=== PATIENT | female | born 1980 | race Two or more races ===

== ENCOUNTER 2020-01-15 05:39 | Emergency (ER) | payer SELFPAY ==
[2020-01-15] MEDS ORDERED: Ketorolac 15 MG/ML SDV IVPUSH ONE (05:57)
[2020-01-15] MEDS ORDERED: Sodium Chloride 0.9% 10 ML Syringe FLUSH PRN (05:57)
[2020-01-15] MEDS ORDERED: Sodium Chloride 0.9% 2.5 ML Syringe FLUSH PRN (05:57)
--- NOTE | 2020-01-15 06:10 | EDM.PDOC ---
<Feng Pérez - Last Filed: 01/15/20 06:54> ED HPI GENERAL MEDICAL PROBLEM - General Chief Complaint: General Stated Complaint: RIGHT UPPER BACK PAIN Time Seen by Provider: 01/15/20 05:53 - History of Present Illness INITIAL COMMENTS - FREE TEXT/NARRATIVE: HISTORY AND PHYSICAL: History of present illness: This is a healthy 39-year-old female who presents to the ER today secondary to pain to her right flank rating to her right upper quadrant x5 days. Patient reports that the pain is constant in nature and not colicky. Reports no change with meals. Patient reports slight change with palpation to the area and slight increase with laying flat in bed. Patient denies any recent fevers, shakes, chills, nausea, vomiting, diarrhea, dysuria, frequency, urgency, hematuria, URI symptoms, cough. Patient denies any melena or bright red blood per rectum. Patient reports no change in pain with deep inspiration. Patient denies any hemoptysis. Patient denies any calf tenderness or edema. Patient reports that she currently works at home and does no heavy lifting or increased exertion prior to the initiation of the pain. Patient reports that she has been taking Tylenol at home with minimal relief. Patient denies any history of hypertension, diabetes, liver, lung, kidney problems. Patient denies any prior PE/DVT. Patient denies any kidney stones in the past. Patient denies any prior diagnoses of cholecystitis/cholelithiasis in the past. Patient denies any prior abdominal or chest surgeries. Patient denies any tobacco alcohol or drugs. Patient has no known drug allergies. Review of systems: As per history of present illness and below otherwise all systems reviewed and negative. Past medical history: As per history of present illness and as reviewed below otherwise noncontribu tory. Surgical history: As per history of present illness and as reviewed below otherwise noncontributory. Social history: No reported history of drug or alcohol abuse. Family history: As per history of present illness and as reviewed below otherwise noncontributory. Physical exam: Constitutional: Patient is oriented to person, place, and time. Appears well- developed and well-nourished. No distress. HEENT: Moist mucous membranes Head: Normocephalic and atraumatic Eyes: Right eye exhibits no discharge. Left eye exhibits no discharge. No scleral icterus Neck: Normal range of motion. No tracheal deviation present. Cardiovascular: Normal rate and regular rhythm. No murmurs. Pulmonary: Effort normal, no respiratory distress. No wheezing rales or rhonchi. Abd: Soft, nondistended, no rebound/guarding, no tenderness at Mcberney's point, no Figueredo's sign. Pt does not present with an exam that would be consistent with an acute surgical abdomen at this time. Patient with tenderness to palpation to her right flank and right upper quadrant. Pain appears to be greatest when palpating the lower ribs and cartilage. Musculoskeletal: Normal range of motion Neurologic: Alert and oriented to person, place and time. Skin: Orrick, warm and dry. Psychiatric: Normal mood and affect. Behavior is normal. Judgment and thought content normal. Nursing note and vital signs have been reviewed Diagnostics: CBC, CMP, lipase, d-dimer, urinalysis, urine test Chest x-ray Therapeutics: Toradol 15 mg IV. Assessment and plan: This is a 39-year-old female who presents ER today with 5 days worth of right flank and right upper quadrant abdominal pain. Possible, pain appears to be atypical for PE/diverticulitis/hepatitis/renal colic/urinary tract infection/pneumonia. In the ER, patient will get a CBC, CMP, lipase, d- dimer, urinalysis, chest x-ray. Patient was given Toradol 15 mg IV and will be reassessed. Patient will have an ultrasound of her right upper quadrant to assess biliary colic as a cause. Chest Xray: Normal cardiac silhouette No infiltrates or effusions identified. No PTX No evidence of acute bony fracture. As interpreted by ER MDDevika Pérez Patient's LFTs are significant for elevated ALT/AST/alk phos. Patient's total bilirubin is within normal limits. Ultrasound of the right upper quadrant has been ordered. D-dimer is within normal limits. Patient's presentation and history is extremely low risk for PE. Urinalysis is unremarkable without any evidence of WBCs/RBCs. Patient has been given Toradol 15 mg IV in the ED and feels slightly improved. 7 AM: Care signed out to Dr. Tyler. Definitive disposition and diagnosis as appropriate pending reevaluation and review of above. back Pain Score (Numeric/FACES): 8 - Related Data Allergies Allergy/AdvReac Type Severity Reaction Status Date / Time No Known Allergies Allergy Verified 01/15/20 05:53 Home Meds: Home Meds Acetaminophen [Acetaminophen Extra Strength] 500 - 1,000 mg PO Q6H PRN #30 tablet 01/15/20 [Rx] metFORMIN [Glucophage] 500 mg PO BIDMEALS 30 Days #60 tab 01/15/20 [Rx] ED ROS GENERAL - Review of Systems Review Of Systems: Comprehensive ROS is negative, except as noted in HPI. ED EXAM, GENERAL - Physical Exam Exam: See Below Departure - Departure Disposition: Home, Self-Care 01 Clinical Impression: Right flank pain, Right upper quadrant abdominal pain, Hepatic steatosis, Elevated liver enzymes Diabetes mellitus Qualifiers: Diabetes mellitus type: other specified (including ALEJANDRA) Diabetes mellitus vermin exterminator insulin use: without alf use Diabetes mellitus complication status: without complication Qualified Code(s): E13.9 - Other specified diabetes mellitus without complications - Discharge Information Prescriptions: Acetaminophen [Acetaminophen Extra Strength] 500 - 1,000 mg PO Q6H PRN #30 tablet PRN Reason: Pain (Mild 1-3) metFORMIN [Glucophage] 500 mg PO BIDMEALS 30 Days #60 tab Instructions: Type 2 Diabetes Mellitus, Diagnosis, Adult, Living With Diabetes, Abdominal Pain, Adult, [id number], Type 2 Diabetes Mellitus, Self Care, Adult, Flank Pain, Adult, Preventing Diabetes Mellitus Complications, Diabetes Mellitus and Exercise, Nonalcoholic Fatty Liver Disease Diet, Adult Referrals: [facility] [Provider Group] - 1 Week (For follow-up of abdominal pain and diabetes mellitus.) Forms: ED Department Discharge Additional Instructions: You were seen in the emergency department for abdominal and flank pain. Your urine testing was normal. Your blood work showed that your liver enzymes are mildly elevated, which is nonspecific. This could be caused by fat in the liver, recent alcohol use, stress, viral infection, or numerous other causes. The ultrasound of your gallbladder was normal, there is noted to be a little bit of fat in the liver which is not uncommon. There is no evidence of an infection right now. When you see your primary doctor for a follow-up appointment, they can recheck your liver tests. Your blood glucose was elevated and your blood work was diagnostic for diabetes mellitus. I am going to start you on metformin, and initial medication that we prescribed most all diabetic patients to start. It is very important that you follow-up with a primary medicine clinic in the next 1 to 2 weeks. You will need to receive diabetes specific education and additional testing such as cholesterol testing, blood pressure monitoring, and have a family physician closely follow you to ensure that everything is being done to help optimize your blood sugar. Please return the emergency department immediately if your symptoms worsen or if you feel worse. Thank you for choosing the [facility] emergency department in [place] for your medical needs today. It was a pleasure caring for you. The following information is given to patients seen in the emergency department who are being discharged. This information is to outline your options for follow-up care. We provide all patients seen in our emergency department with a follow-up referral. The need for follow-up, as well as the timing and circumstances, are variable depending upon the specifics of your emergency department visit. If you don't have a primary care physician on staff, we will provide you with a referral. We always advise you to contact your personal physician following an emergency department visit to inform them of the circumstance of the visit and for follow-up with them and/or the need for any referrals to a consulting specialist. The emergency department will also refer you to a specialist when appropriate. This referral assures that you have the opportunity for follow-up care with a specialist. All of these measure are taken in an effort to provide you with optimal care, which includes your follow-up. Under all circumstances we always encourage you to contact your private physician who remains a resource for coordinating your care. When calling for follow-up care, please make the office aware that this follow-up is from your recent emergency room visit. If for any reason you are refused follow-up, please contact the [facility] Emergency Department at and asked to speak to the emergency department charge nurse. If you do not have a primary care physician that is caring for you, you can contact these clinics below to set up an appointment to establish care: [facility] - Primary [facility] [address] [place] [id number] [facility] [address] [place] [address] Sepsis Event Note (ED) - Evaluation Sepsis Screening Result: No Definite Risk <Quentin Tyler - Last Filed: 01/15/20 09:10> Course - Vital Signs Text/Narrative:: I assumed care of this patient at [address] Pérez. In brief, this is a 39-year-old female presenting with 5 days of right flank pain radiating to the right upper quadrant. I agree with Dr. Pérez's history and physical examination, mine is consistent with his. Vital signs stable. CBC shows no leukocytosis. D-dimer is negative. Metabolic panel shows hyperglycemia >200 mg/dL, elevated AST, ALT, and alkaline phosphatase. Lipase is within normal limits. Urinalysis shows no blood or evidence of infection. We are waiting for an ultrasound study of the right upper quadrant. She had been given IV ketorolac prior to my arrival. 0730: I reevaluated the patient and she is still having some pain. I ordered oxycodone, acetaminophen, and a lidocaine patch. I also added on a hemoglobin A1c as her blood sugar is borderline for diabetes mellitus. We are waiting for the outer diameter technician to arrive. 0814: Patient is resting comfortably. We are awaiting the ultrasound read in the A1c. We did discuss obtaining a CT scan of the abdomen/pelvis with contrast. We did discuss the results of her current work-up and vital signs. At this time, the patient does not want to pursue with a CT scan and is comfortable with the ultrasound, blood work, and urinalysis testing that we have already done. Right upper quadrant ultrasound shows fatty infiltration of the liver but no other acute findings. Biliary ductal measurements are normal. Patient resting comfortably. Patient hemodynamically stable, afebrile, well-appearing, looks nontoxic. Plan: Patient is stable to discharge home with outpatient primary care clinic follow-up. Etiology of abdominal pain is not entirely clear but no evidence of an emergent or malignant process at this time. We did discuss CT imaging of the abdomen/pelvis, which the patient wants to defer. She has newly diagnosed diabetes and we will refer her to the family medicine clinic for follow-up and start her on some metformin. I also counseled her that she needs to have her liver function tests rechecked. Prescriptions sent for metformin, acetaminophen. Also recommended [id number] lidocaine patches. Strict emergency department return precautions were provided, patient indicated understanding. All questions were answered prior to departure. Discharged in good condition. Last Recorded V/S: Last Vital Signs Temp 35.9 C L 01/15/20 05:45 Pulse 73 01/15/20 08:03 Resp 18 01/15/20 08:03 BP 132/85 01/15/20 08:03 Pulse Ox 97 01/15/20 08:03 - Orders/Labs/Meds Orders: Active Orders 24 hr Category Date Time Status Sodium Chloride 0.9% [Saline Flush] Med 01/15/20 05:57 Active 10 ml FLUSH ASDIRECTED PRN Sodium Chloride 0.9% [Saline Flush] Med 01/15/20 05:57 Active 2.5 ml FLUSH ASDIRECTED PRN Saline Lock Insert [OM.PC] Stat Oth 01/15/20 05:57 Ordered Medication Orders Sodium Chloride (Saline Flush) 10 ml FLUSH ASDIRECTED PRN PRN Reason: Keep Vein Open Last Admin: 01/15/20 06:19 Dose: 10 ml Documented by: FRIDA Sodium Chloride (Saline Flush) 2.5 ml FLUSH ASDIRECTED PRN PRN Reason: Keep Vein Open Last Admin: 01/15/20 06:19 Dose: 2.5 ml Documented by: FRIDA Labs: Laboratory Tests 01/15/20 01/15/20 01/15/20 Range/Units 06:03 06:03 06:12 WBC 7.31 (4.0-11.0) K/uL RBC 4.77 (4.30-5.90) M/uL Hgb 14.7 (12.0-16.0) g/dL Hct 42.9 (36.0-46.0) % MCV 89.9 (80.0-98.0) fL MCH 30.8 (27.0-32.0) pg MCHC 34.3 (31.0-37.0) g/dL RDW Std Deviation 40.8 (28.0-62.0) fl RDW Coeff of Hugo 13 (11.0-15.0) % Plt Count 261 (150-400) K/uL MPV 10.00 (7.40-12.00) fL Neut % (Auto) 43.2 L (48.0-80.0) % Lymph % (Auto) 44.9 H (16.0-40.0) % [place] % (Auto) 9.6 (0.0-15.0) % Eos % (Auto) 1.9 (0.0-7.0) % Baso % (Auto) 0.4 (0.0-1.5) % Neut # (Auto) 3.2 (1.4-5.7) K/uL Lymph # (Auto) 3.3 H (0.6-2.4) K/uL Yolo # (Auto) 0.7 (0.0-0.8) K/uL Eos # (Auto) 0.1 (0.0-0.7) K/uL Baso # (Auto) 0.0 (0.0-0.1) K/uL D-Dimer, Quantitative (0.0-0.50) mg/L FEU Sodium (136-145) mmol/L Potassium (3.5-5.1) mmol/L Chloride (98-107) mmol/L Carbon Dioxide (21.0-32.0) mmol/L BUN (7.0-18.0) mg/dL Creatinine (0.6-1.0) mg/dL Est Cr Clr Drug Dosing mL/min Estimated GFR (MDRD) ml/min Glucose (74-106) mg/dL Hemoglobin A1c (4.5-6.2) % Calcium (8.5-10.1) mg/dL Total Bilirubin (0.2-1.0) mg/dL AST (15-37) IU/L ALT (14-63) IU/L Alkaline Phosphatase (46-116) U/L Total Protein (6.4-8.2) g/dL Albumin (3.4-5.0) g/dL Globulin (2.6-4.0) g/dL Albumin/Globulin Ratio (0.9-1.6) Lipase (73-393) U/L Urine Color YELLOW Urine Appearance CLEAR Urine pH 5.0 (5.0-8.0) Ur Specific [place] 1.010 (1.001-1.035) Urine Protein NEGATIVE (NEGATIVE) mg/dL Urine Glucose (UA) NEGATIVE (NEGATIVE) mg/dL Urine Ketones NEGATIVE (NEGATIVE) mg/dL Urine Occult Blood NEGATIVE (NEGATIVE) Urine Nitrite NEGATIVE (NEGATIVE) Urine Bilirubin NEGATIVE (NEGATIVE) Urine Urobilinogen 0.2 (<2.0) EU/dL Ur Leukocyte Esterase NEGATIVE (NEGATIVE) Urine HCG, Qual NEGATIVE (NEGATIVE) 01/15/20 01/15/20 01/15/20 Range/Units 06:12 06:12 06:12 WBC (4.0-11.0) K/uL RBC (4.30-5.90) M/uL Hgb (12.0-16.0) g/dL Hct (36.0-46.0) % MCV (80.0-98.0) fL MCH (27.0-32.0) pg MCHC (31.0-37.0) g/dL RDW Std Deviation (28.0-62.0) fl RDW Coeff of Hugo (11.0-15.0) % Plt Count (150-400) K/uL MPV (7.40-12.00) fL Neut % (Auto) (48.0-80.0) % Lymph % (Auto) (16.0-40.0) % Y[place] % (Auto) (0.0-15.0) % Eos % (Auto) (0.0-7.0) % Baso % (Auto) (0.0-1.5) % Neut # (Auto) (1.4-5.7) K/uL Lymph # (Auto) (0.6-2.4) K/uL Yolo # (Auto) (0.0-0.8) K/uL Eos # (Auto) (0.0-0.7) K/uL Baso # (Auto) (0.0-0.1) K/uL D-Dimer, Quantitative < 0.19 (0.0-0.50) mg/L FEU Sodium 137 (136-145) mmol/L Potassium 4.0 (3.5-5.1) mmol/L Chloride 102 (98-107) mmol/L Carbon Dioxide 27.7 (21.0-32.0) mmol/L BUN 6 L (7.0-18.0) mg/dL Creatinine 0.8 (0.6-1.0) mg/dL Est Cr Clr Drug Dosing 67.81 mL/min Estimated GFR (MDRD) > 60.0 ml/min Glucose 207 H (74-106) mg/dL Hemoglobin A1c 8.2 H (4.5-6.2) % Calcium 8.9 (8.5-10.1) mg/dL Total Bilirubin 0.4 (0.2-1.0) mg/dL AST 56 H (15-37) IU/L ALT 112 H (14-63) IU/L Alkaline Phosphatase 118 H (46-116) U/L Total Protein 8.1 (6.4-8.2) g/dL Albumin 3.8 (3.4-5.0) g/dL Globulin 4.3 H (2.6-4.0) g/dL Albumin/Globulin Ratio 0.9 (0.9-1.6) Lipase 160 (73-393) U/L Urine Color Urine Appearance Urine pH (5.0-8.0) Ur Specific [place] (1.001-1.035) Urine Protein (NEGATIVE) mg/dL Urine Glucose (UA) (NEGATIVE) mg/dL Urine Ketones (NEGATIVE) mg/dL Urine Occult Blood (NEGATIVE) Urine Nitrite (NEGATIVE) Urine Bilirubin (NEGATIVE) Urine Urobilinogen (<2.0) EU/dL Ur Leukocyte Esterase (NEGATIVE) Urine HCG, Qual (NEGATIVE) Meds: Medications Generic Name Dose Route Start Last Admin Trade Name Freq PRN Reason Stop Dose Admin Sodium Chloride 10 ml 01/15/20 05:57 01/15/20 06:19 Saline Flush FLUSH 10 ml ASDIRECTED PRN Administration Keep Vein Open Sodium Chloride 2.5 ml 01/15/20 05:57 01/15/20 06:19 Saline Flush FLUSH 2.5 ml ASDIRECTED PRN Administration Keep Vein Open Discontinued Medications Generic Name Dose Route Start Last Admin Trade Name Freq PRN Reason Stop Dose Admin Acetaminophen 1,000 mg 01/15/20 07:34 01/15/20 08:00 Tylenol Extra Strength PO 01/15/20 07:35 1,000 mg ONETIME ONE Administration Ketorolac Tromethamine 15 mg 01/15/20 05:57 01/15/20 06:19 Toradol IVPUSH 01/15/20 05:58 15 mg ONETIME ONE Administration Lidocaine 700 mg 01/15/20 07:36 01/15/20 08:00 Lidoderm 5% TOP 01/15/20 07:37 700 mg ONETIME ONE Administration Oxycodone HCl 10 mg 01/15/20 07:34 01/15/20 08:00 Oxycodone PO 01/15/20 07:35 10 mg ONETIME ONE Administration Departure - Departure Time of Disposition: 09:10 Condition: Good - Discharge Information *PRESCRIPTION DRUG MONITORING PROGRAM REVIEWED*: Not Applicable *COPY OF PRESCRIPTION DRUG MONITORING REPORT IN PATIENT DAVIS: Not Applicable Sepsis Event Note (ED) - Focused Exam Vital Signs: Vital Signs Temp Pulse Resp BP Pulse Ox 01/15/20 08:03 73 18 132/85 97 01/15/20 05:45 35.9 C L 79 17 148/94 H 97
[2020-01-15 06:39] LABS: BLOOD UREA NITROGEN,BUN 6 mg/dL (7.0-18.0); CARBON DIOXIDE,CO2 27.7 mmol/L (21.0-32.0); CHLORIDE,CL 102 mmol/L (98-107); GLUCOSE RANDOM 207 mg/dL (74-106); LIPASE 160 U/L (73-393); SODIUM,NA 137 mmol/L (136-145)
--- NOTE | 2020-01-15 07:11 | CR ---
INDICATION: Right-sided chest pain. COMPARISON: None. TECHNIQUE: 2 view chest. FINDINGS: There is a hazy opacity in the right mid and lower lung which could represent a subtle infiltrate. No pleural effusion or pneumothorax. Normal heart size and pulmonary vascularity. IMPRESSION: Hazy opacity in the right mid and lower lung could represent a subtle infiltrate. Dictated by Bianca Cordoba MD @ Jan 15 2020 7:07AM Signed by Dr. Bianca Cordoba @ Jan 15 2020 7:09AM
[2020-01-15] MEDS ORDERED: Acetaminophen 500 MG Tab PO ONE (07:34)
[2020-01-15] MEDS ORDERED: oxyCODONE 5 MG Tab PO ONE (07:34)
[2020-01-15] MEDS ORDERED: Lidocaine 5% 700 MG Patch TOP ONE (07:36)
[2020-01-15 08:17] LABS: HEMOGLOBIN A1C 8.2 % (4.5-6.2)
--- NOTE | 2020-01-15 09:00 | US ---
Limited abdominal ultrasound: Multiple real-time images of the upper right abdomen were obtained. Liver is very echogenic compatible with fatty infiltration. No focal abnormality is appreciated within the liver. Right kidney shows no hydronephrosis or mass. Right kidney has a length of 10.3 cm. Gallbladder contains no shadowing gallstones. No gallbladder wall thickening or biliary duct dilatation is seen. Aorta shows no aneurysm. Visualized portions of the pancreas are unremarkable. Impression: 1. Echogenic liver compatible with fatty infiltration. 2. No additional abnormality is appreciated on right upper quadrant abdominal ultrasound. Diagnostic code #2 Study was dictated in MDT
== END 2020-01-15 09:28 | disposition home or self-care (01) ==
LOC: MW.ED 05:39
DX: E13.9 Other specified diabetes mellitus without complications (principal); E88.89 Other specified metabolic disorders; R74.8 Abnormal levels of other serum enzymes
CPT/HCPCS: 36415; 71046; 76705; 80053; 81003; 81025; 83036; 83690; 85025; 85379; 96374; 99284; A9270; J1885